=== PATIENT | male | born 2000 | race Caucasian/White ===

== ENCOUNTER 2018-09-24 13:03 | Emergency (ER) | payer BC, SELFPAY ==
[2018-09-24 13:05] VITALS: BP 129/63; PULSE 69; RESP 18; TEMP 36.6; O2SAT 98; BMI 21.7
--- NOTE | 2018-09-24 13:19 | ED.VISSUMM ---
- ER Visit Summary Date of Service: 09/24/18 Chief Complaint: Allergic reaction History of Present Illness: The patient is a 18 M who presents with allergic reaction that began today. Patient states he has an allergy to nuts. Patient states he ate a cookie and then realized there may have been an almond in the cookie. Patient states he felt like his tongue was swelling in his throat was getting itchy. Patient states he was having some nausea. Patient took his EpiPen and is feeling better now. Patient denies any shortness of breath. Patient denies any chest pain. Physical Examination: Vital signs are stable. Patient is afebrile. Patient is in no acute distress. Oral mucosa is pink and moist. Neck is supple. Trachea is midline. There is no JVD noted. Heart was regular rate and rhythm. Lungs are clear and equal bilateral. Abdomen is soft. Bowel sounds are normal. There is no tenderness. There is no guarding noted. Skin is warm dry. Cranial nerves II through XII are intact. There are no focal motor or sensory deficits noted. The remaining physical exam is within normal limits. Emergency Department Course and Treatment: Patient was observed in the emergency department. Patient had no further swelling or itching. Patient was feeling better on reevaluation. Patient states he has more epi-pens at home. Patient does not need a prescription for new EpiPen. Patient was instructed to follow-up with his primary care physician in 5 to 7 days. Patient understood and was agreeable with plan. All questions were answered. Disposition: Discharge home Impression: Allergic reaction This note was generated with [employer] dictation software. It may contain incorrect words, spelling, and punctuation that were not noted in review of the chart prior to signing ED Disposition - Plan for ED Patient: Disposition: Home or Assisted Living Diagnosis: Allergic reaction Instructions: ED Allergic Reaction General Other Referrals: NOT,DEFINED [NON-STAFF] - 5-7 Days
[2018-09-24 14:43] VITALS: BP 116/68; PULSE 59; RESP 18; O2SAT 98
[2018-09-24 15:00] VITALS: BP 116/66; PULSE 53; RESP 14; O2SAT 98
[2018-09-24 15:58] VITALS: BP 116/68; PULSE 66; RESP 18; O2SAT 97
== END 2018-09-24 16:00 | disposition home or self-care (01) ==
PROVIDERS: Emergency Provider Emergency Medicine; Family Provider Pediatrics; PCP Pediatrics
DX: T78.1XXA Other adverse food reactions, not elsewhere classified, initial encounter (principal); L29.9 Pruritus, unspecified; J45.909 Unspecified asthma, uncomplicated
CPT/HCPCS: 99282

== ENCOUNTER 2019-05-27 21:04 | Emergency (ER) | payer BC, SELFPAY ==
[2019-05-27 21:07] VITALS: BP 151/88; PULSE 86; RESP 15; TEMP 36.9; O2SAT 97; BMI 24.0
[2019-05-27] MEDS: Ipratropium/Albuterol Sulfate 3 ML AMPUL.NEB INHALATION (21:48)
[2019-05-27] MEDS: Albuterol 2.5 MG/3 ML VIAL.NEB. INHALATION (21:48)
[2019-05-27 21:49] VITALS: PULSE 89; RESP 16
--- NOTE | 2019-05-27 22:01 | RAD_ITS ---
STUDY: X-RAY CHEST REASON FOR EXAM: Male, 18 years old. Cough. TECHNIQUE: PA and lateral COMPARISON: None. FINDINGS: No apparent pneumothorax, pneumonia, pleural effusion, or edema. Cardiac silhouette, sharda and mediastinal contours are within normal limits. No acute osseous abnormality. No evidence of free air under the diaphragm. RAD/Chest PA and Lateral IMPRESSION: Negative chest radiograph. Electronically Signed: Antony Urena, at 22:15 EST Tel , Service support ,
--- NOTE | 2019-05-27 22:08 | ED.VIS.FLU ---
History of Present Illness Chief Complaint: Cough Informant: Patient Onset: Days Context: Gradual Onset Timing: Continuous Quality: Dyspnea on exertion, Wheezing Worsened by: Coughing, Exertion Associated Symptoms: Cough, Rhinorrhea Chest Pain: None Narrative: Patient is a 18-year-old male with history of asthma presenting with worsening shortness of breath. Patient was diagnosed with influenza at urgent care 1 week ago. He is on a course of Tamiflu which he is finished. He states he just was not swabbed at that time. He notes over the past few days his asthma is been flaring up more. He went back to urgent care again 3 days ago and was put on a course of prednisone. He is currently on his second day. He notes that he was feeling better yesterday but today started to feel worse and thinks his wheezing is worse. He has been using his albuterol inhaler as well as his nebulizer at home with some relief of his symptoms. He denies any fever but does report chills. He is also had some night sweats. He denies any swelling of his legs. He denies any history of blood clots, pulmonary embolism/DVT. Patient went back to urgent care today and they thought he needed further evaluation at the emergency room. Past Medical History - Allergies and Home Meds Allergies/Adverse Reactions: Allergies nut - unspecified Allergy (Verified 05/27/19 21:09) Hives peanut Allergy (Verified 05/27/19 21:09) Hives Primary Care Physician: Bro Zuniga MD [Primary Care Provider] - Past Medical History: - - Asthma Surgical History: noncontributory Smoking Status: Never smoker Review of Systems General: Reports: Chills, Malaise. Denies: Fever, Sweats Cardiovascular: Denies: Chest pain, Palpitations Respiratory: Reports: Dyspnea, Cough. Denies: Dyspnea on exertion Gastrointestinal: Denies: Abdominal pain, Nausea, Vomiting, Diarrhea, Melena, Hematochezia Genitourinary: Denies: Dysuria, Hematuria, Frequency Skin: Denies: Rash Neurological: Denies: Headache, Weakness, Numbness Physical Exam Vital Signs/Narrative: Vital Signs Temp Pulse Resp BP Pulse Ox 05/27/19 21:49 89 16 05/27/19 21:07 98.5 F 86 15 151/88 H 97 Inital Vital Signs reviewed: Yes General: Well nourished, Well developed Head: Normocephalic, Atraumatic Eyes: Perrl, EOMI Neck: Supple, Nontender Cardiovascular: Regular rate, Regular rhythm, No murmurs Respiratory: No distress, No Stridor, Rhonchi - Bilateral. Negative for: Wheezing, Diminished, Decreased Air Movement, Retractions Abdomen: Soft, Nontender, Nondistended, Normal bowel sounds Back: Nontender, Normal Inspection Extremities: Nontender, No edema Skin: Normal color, No rash Neurological: Alert, Oriented x3, Cranial nerves II-XII grossly intact, Normal Strength, Normal Sensation Psychological: Normal affect Diagnostic/Tx/Re-eval Chest X-Ray - ED: 2 View, Read by ED Physician, Read by Radiologist, No Acute Disease Clinical Impression(s) from Imaging Studies Chest X-Ray 05/27/19 22:01 IMPRESSION: Negative chest radiograph. Electronically Signed: Antony Urena, at 22:15 EST Tel , Service support , Treatments: Albuterol, Atrovent O2 Sat with ambulation (%): 96 - Medical Decision Making Patient is evaluated for cough that is persisting. He is currently on a prednisone burst, day 2. He does have rhonchi on exam but no wheezing. He is otherwise well-appearing. Chest x-rays not show any pneumonia. He does not have any associated chest pain. Patient is PE RC negative and I do not suspect PE as a cause of his symptoms. Likely this is from his recent influenza. Patient is counseled that he just needs more time for the steroids to work. He is ambulated and does not have any hypoxia in the emergency room. Patient will be given a school note for today and tomorrow. He is referred to PCP for follow-up. Patient is counseled on signs and symptoms requiring return to the emergency room. Patient verbalizes agreement and understand this plan. Patient discharged home in stable and improved condition. ED Disposition - Plan for ED Patient: Disposition: Home or Assisted Living Diagnosis: Bronchitis Instructions: BRONCHITIS with Wheezing (Adult) Referrals: Phan Finnegan MD [STAFF PHYSICIAN] - Additional Instructions: Continue take your steroids as prescribed. Use your breathing treatments. Take [id number] Mucinex. Return the emergency room if you develop chest pain or worsening shortness of breath. Right now I think you just need time for the steroids to work and your body to continue to heal from the flu.
[2019-05-27 23:08] VITALS: O2SAT 96
[2019-05-27 23:59] VITALS: BP 145/80; PULSE 78; RESP 17; O2SAT 95
== END 2019-05-28 | disposition home or self-care (01) ==
PROVIDERS: Emergency Provider Emergency Medicine; PCP Pediatrics
DX: J45.909 Unspecified asthma, uncomplicated (principal); Z79.52 Long term (current) use of systemic steroids; Z79.51 Long term (current) use of inhaled steroids
CPT/HCPCS: 71046; 94640; 99282

== ENCOUNTER 2020-08-03 10:48 | Outpatient (RCR) | payer BC, SELFPAY | END 2020-09-26 23:59 | LOC: IMMUN 10:48 | PROVIDERS: Referring Provider Family Medicine; Visit Provider Family Medicine | DX: Z23 Encounter for immunization (principal) | CPT/HCPCS: 0001A; 0002A; 91300 ==